=== PATIENT | male | born 1965 | race Caucasian/White ===

== ENCOUNTER → 2017-06-03 | Outpatient (CLI) | payer BC, OTHER ==
--- NOTE | 2017-06-03 21:33 | MR ---
EXAMINATION TYPE: MR knee LT wo con DATE OF EXAM: 06/03/2017 COMPARISON: Outside left knee x-ray May 15, 2017 HISTORY: Left knee pain with Locking and Swelling per patient. TECHNIQUE: Multiplanar, multisequence images of the knee is performed without IV contrast. FINDINGS: MEDIAL MENISCUS: There is medial extrusion of medial meniscus on coronal images. Anterior horn is dis placed anteriorly on sagittal images with globular increased signal. There is complex linear signal p osterior horn of medial meniscus, which appears to approach the superior meniscal surface sagittal im age 25 with truncated appearance. LATERAL MENISCUS: There is vertical increased signal central body lateral meniscus seen best sagittal image 8 extending to superior and inferior articular surfaces. There is parameniscal cyst formation posteriorly noted at this level. CRUCIATE LIGAMENTS: The anterior and posterior cruciate ligaments are intact and unremarkable. COLLATERAL LIGAMENTS: The medial collateral ligament and lateral collateral ligament complex are inta ct. Mild fluid signal surrounds medial collateral ligament which has abnormal medial bowing EXTENSOR MECHANISM: Visualized quadriceps and patellar tendons are intact. Patellar tendon is thicken ed. EFFUSION: There is small significant suprapatellar joint effusion. POPLITEAL CYST: There is large multiseptated popliteal/ridley cyst measuring nearly 11 cm long axis sa gittal image 22. TRICOMPARTMENT SPACES: There is advanced joint space loss medial tibiofemoral compartment with modera te to advanced medial and anterior spurring. There is moderate to advanced joint space loss and moder ate spurring patellofemoral compartment. There is mild spurring and joint space loss lateral tibiofem oral compartment. CARTILAGE: There is some fissuring and increased signal posterior patellar pole axial image 16 consis tent with chondromalacia patella. No full-thickness cartilaginous loss is seen at this level. There i s however full-thickness cartilaginous loss medial tibiofemoral compartment. BONE MARROW SIGNAL: There is heterogeneous diminished T1 and increased T2 signal medial tibial femora l compartment consistent bone marrow edema at site of full thickness cartilaginous loss. OTHER: There are some heterogeneous increased fluid signal in the deep infrapatellar fat pad. IMPRESSION: 1. Tricompartment degenerative changes which are advanced in appearance medial tibiofemoral compartme nt as there is full-thickness cartilaginous loss and reactive osseous edema present. 2. Full-thickness vertical tear central body of lateral meniscus. 3. Complex tear posterior horn of medial meniscus. 4. Intrasubstance tear anterior horn of medial meniscus. 5. Large multiseptated popliteal/Ridley cyst. 6. Mild to moderate MCL sprain.
== END | disposition home or self-care (01) ==
LOC: RADMRIMAIN 18:54
PROVIDERS: ATTEND Orthopaedic Surgery
DX: S83.282A Other tear of lateral meniscus, current injury, left knee, initial encounter (principal); S83.232A Complex tear of medial meniscus, current injury, left knee, initial encounter; S83.242A Other tear of medial meniscus, current injury, left knee, initial encounter; S83.412A Sprain of medial collateral ligament of left knee, initial encounter; M71.22 Synovial cyst of popliteal space [Baker], left knee; M94.8X6 Other specified disorders of cartilage, lower leg

== ENCOUNTER → 2017-08-06 | Outpatient (CLI) | payer BC, OTHER ==
[2017-08-06 14:34] LABS: Basophils # (A) 0.1 k/uL (0-0.2); Basophils % (A) 1 %; Eosinophils # (A) 0.2 k/uL (0-0.7); Eosinophils % (A) 2 %; HCT 44.7 % (39.0-53.0); Lymphocytes # (A) 1.8 k/uL (1.0-4.8); Lymphocytes % (A) 25 %; MCHC 33.6 g/dL (31.0-37.0); MCV 89.3 fL (80.0-100.0); Mean Platelet Volume 6.6; Monocytes # (A) 0.4 k/uL (0-1.0); Monocytes % (A) 6 %; Neutrophils # (A) 4.7 k/uL (1.3-7.7); Neutrophils % (A) 64 %; Platelet Count 246 k/uL (150-450); WBC 7.4 k/uL (3.8-10.6)
[2017-08-06 14:44] LABS: Potassium 3.9 mmol/L (3.5-5.1)
== END | disposition home or self-care (01) ==
LOC: LABPAT 13:50
PROVIDERS: ATTEND Orthopaedic Surgery
DX: Z01.812 Encounter for preprocedural laboratory examination (principal); M23.92 Unspecified internal derangement of left knee; Z01.818 Encounter for other preprocedural examination
CPT/HCPCS: 36415; 80051; 85025; 93005

== ENCOUNTER 2017-08-08 06:19 | Day surgery (SDC) | payer BC, OTHER ==
[2017-08-06 08:59] VITALS: BMI 33.6
--- NOTE | 2017-08-07 20:43 | HP ---
HISTORY AND PHYSICAL Chris Christine is a 52-year-old patient seen with progressive left knee pain. We discussed options regarding treatment. He elected to proceed with left knee arthroscopy. Consent regarding the procedure was obtained. PAST MEDICAL HISTORY: Noncontributory. PAST SURGICAL HISTORY: Noncontributory. DAILY MEDICATIONS: None. ALLERGIES: None reported. SOCIAL HISTORY: Patient denies tobacco use. PHYSICAL EVALUATION: Left knee range of motion is -2/3 to 120 degrees. There is a mild effusion present. There is tenderness along the medial and lateral joint lines. There is a positive medial Jane's. Ligaments are stable. There is crepitus along the medial patellofemoral compartments with range of motion. Hip rotation without pain. Distal neurovascular exam is intact. RADIOGRAPHS: Radiographs of the left knee reveal osteoarthritic changes. An MRI of the left knee revealed medial and lateral meniscal tears as well as osteoarthritis. IMPRESSION: 1. Internal derangement of the left knee with medial and lateral meniscal tears. 2. Left knee osteoarthritis. PLAN: Left knee arthroscopy with partial meniscectomy and debridement. MMODL / IJN: [id number] /
[~2017-08-08 06:19] MED LIST: HYDROmorphone 0.5 MG/0.5 ML SYRINGE IVP PRN; LACTATED RINGERS 1,000 ML IV SCH; ONDANSETRON 4 MG/2 ML VIAL IVP PRN; ceFAZolin IN SWFI 2 GM/20 ML SYRINGE IVP ONE; fentaNYL (PF) 50 MCG/ML 2 ML AMP IV PRN
[2017-08-08] MEDS ORDERED: LIDOCAINE 1% 20 ML VIAL (10MG/ML) FOR IV START INTRADERMA ONE (07:00)
[2017-08-08] MEDS ORDERED: MIDAZOLAM 2 MG/2 ML VIAL ONE (07:25)
[2017-08-08] MEDS ORDERED: ePHEDrine SULFATE/0.9% NACL/PF 50 MG/5 ML SYRINGE IV ONE (07:25)
[2017-08-08] MEDS ORDERED: PROPOFOL 10 MG/ML 20 ML VIAL IV ONE (07:25)
[2017-08-08] MEDS ORDERED: LIDOCAINE 1% INJ 10MG/ML (20 ML MDV) ONE (07:25)
[2017-08-08] MEDS ORDERED: fentaNYL (PF) 50 MCG/ML 2 ML AMP ONE (07:25)
[2017-08-08] MEDS ORDERED: SUCCINYLCHOLINE CHLORIDE VIAL 200 MG/10 ML VIAL IV ONE (07:25)
[2017-08-08] MEDS ORDERED: BUPIVACAINE (PF) 0.5% 30 ML VIAL INTRAARTIC ONE (07:36)
[2017-08-08 08:30] VITALS: TEMP 96.8
[2017-08-08] MEDS ORDERED: KETOROLAC 30 MG/ML 1 ML VIAL IVP ONE (08:36)
--- NOTE | 2017-08-08 08:36 | P.OP ---
Date of Procedure: 08/08/17 Preoperative Diagnosis: Internal derangement left knee Postoperative Diagnosis: 1. Tear medial and lateral meniscus left knee 2. Grade 4 chondromalacia medial femoral condyle left knee 3. Grade 3 chondromalacia lateral femoral condyle left knee 4. Grade 3/4 chondromalacia patellofemoral joint left knee 5. Reactive synovitis medial, lateral and suprapatellar compartments left knee 6. Partial ACL tear left knee 7. Multiple loose bodies left knee Procedure(s) Performed: 1. Arthroscopic partial medial and lateral meniscectomy left knee 2. Arthroscopic chondroplasty medial femoral condyle left knee 3. Arthroscopic chondroplasty lateral femoral condyle left knee 4. Arthroscopic chondroplasty patellofemoral joint left knee 5. Arthroscopic partial synovectomy medial, lateral and suprapatellar compartments left knee 6. Arthroscopic debridement partial ACL tear left knee 7. Arthroscopic removal loose bodies left knee 3 Anesthesia: LEOBARDO, local Surgeon: Justus Boykin Estimated Blood Loss (ml): 8 Pathology: none sent Condition: stable Disposition: PACU Indications for Procedure: 52-year-old patient seen with progressive left knee pain. After having treatment options discussed, he elected to proceed with arthroscopy. Operative Findings: see description of procedure Description of Procedure: Patient was taken to the operative suite. Patient underwent a general anesthetic by the department of anesthesia. Patient was given preoperative antibiotics. The left lower extremity was placed in a well-padded arthroscopic leg crandall. The left leg was prepped and draped in the normal sterile orthopedic fashion. A lateral parapatellar and suprapatellar incision was made. Trochars were inserted. Arthroscopy was initiated. Suprapatellar pouch revealed diffuse thick reactive synovitis. The patellofemoral joint appeared to articulate congruently. There was grade 3 and 4 chondromalacia of both the patella and femoral sulcus with diffuse osteochondral tears present. The scope was guided into the medial gutter. No loose bodies or plica were identified. The scope was then guided into the medial compartment. A medial parapatellar incision was made. Trocar inserted followed by probe. There was a complex tear involving the midbody and posterior horn of the medial meniscus. There was a small radial tear anterior horn medial meniscus. There were grade 4 chondral moist changes of medial femoral condyle with some osteochondral tears present. There were grade 4 chondral malacia changes of medial tibial plateau. There was exposed bone both on the femoral condyle and tibial plateau side. There was thick reactive synovitis anteriorly. I performed a partial medial meniscectomy down to stable tissue. I performed a chondroplasty of the medial femoral condyle down to stable tissue. I performed a partial synovectomy. The residual meniscus was found to be stable. Scope and probe were then guided into the intercondylar notch. There appeared to be a partial tear of the anterior crucial ligament with the residual stump and fibers sitting in the notch. It did impinge with extension. I debrided the partial tear out. There were some residual fibers of the ACL left. Maybe 50% that offered some stability. The PCL was intact. The scope and probe were then guided into lateral compartment. There were radial tears involving the posterior horn and midbody lateral meniscus. There was a central weightbearing surface lateral femoral condyle area of grade 3 chondromalacia with osteochondral tears present. There was some reactive synovitis present. I performed a partial lateral meniscectomy down to stable tissue. I performed a chondroplasty of the lateral femoral condyle down to stable tissue. I performed a partial synovectomy. The residual meniscus and osteochondral surfaces were probed and found to be stable. The scope was in guided back into the suprapatellar compartment. I introduced a motorized shaver into the super patellar compartment. I debrided some piecemeal fragments of meniscus I encountered. I performed a chondroplasty of both the patella and femoral sulcus getting down to stable osteochondral tissue. I debrided some piecemeal fragments of meniscus I encountered. I performed a partial synovectomy. I took one more look on the entire knee, no residual debris. Instruments were now removed from the joint. The joint was infiltrated with .25% Marcaine. Steri-Strips were applied to the portal sites. Sterile dressings were applied. The patient was placed into a SHANDRA hose. No tourniquet was utilized. The patient was awakened, transferred to a bed and taken to recovery stable satisfactory condition.
[2017-08-08 09:09] VITALS: RESP 18
[2017-08-08 09:47] VITALS: BP 109/69; PULSE 72
== END 2017-08-08 09:58 | disposition home or self-care (01) ==
LOC: OR 06:19
PROVIDERS: ATTEND Orthopaedic Surgery
DX: S83.242A Other tear of medial meniscus, current injury, left knee, initial encounter (principal); S83.282A Other tear of lateral meniscus, current injury, left knee, initial encounter; S83.512A Sprain of anterior cruciate ligament of left knee, initial encounter; X58.XXXA Exposure to other specified factors, initial encounter; M22.42 Chondromalacia patellae, left knee; M65.862 Other synovitis and tenosynovitis, left lower leg; M23.42 Loose body in knee, left knee; E66.9 Obesity, unspecified; Z68.33 Body mass index [BMI] 33.0-33.9, adult

== ENCOUNTER → 2017-12-30 | Outpatient (CLI) | payer BC, OTHER ==
--- NOTE | 2017-12-30 13:17 | MR ---
EXAMINATION TYPE: MR knee RT wo con DATE OF EXAM: 12/30/2017 COMPARISON: Plain films advanced orthopedics dated 12/03/2017 HISTORY: Pain in right knee TECHNIQUE: Multiplanar, multisequence imaging of the right knee is performed without IV contrast. FINDINGS: MEDIAL MENISCUS: Anterior horn medial meniscus appears intact. There is oblique signal extending to t he inferior articular surface within the substance of the posterior horn medial meniscus compatible w ith a long oblique tear. LATERAL MENISCUS: Anterior and posterior horns are intact without tear. CRUCIATE LIGAMENTS: The anterior and posterior cruciate ligaments are intact and unremarkable. COLLATERAL LIGAMENTS: The medial collateral ligament and lateral collateral ligament complex are inta ct and unremarkable. EXTENSOR MECHANISM: Visualized quadriceps and patellar tendons are intact. EFFUSION: No significant suprapatellar joint effusion. POPLITEAL CYST: No popliteal/hess cyst. There does appear to be a large meniscal cyst posterior and lateral to the oblique tear of the posterior horn medial meniscus. This is estimated to measure 2.5 x 0.9 x 2.2 cm in size. TRICOMPARTMENT SPACES: There is narrowing of the medial lateral compartment joint spaces. The patello femoral joint space appears preserved. CARTILAGE: There is thinning of the articular cartilage diffusely likely on the basis of osteoarthrit ic degenerative change. This is the least in the patellofemoral compartment and diffuse within the me dial lateral compartments. BONE MARROW SIGNAL: No focal abnormal marrow signal is appreciated. OTHER: No additional significant abnormality is appreciated. IMPRESSION: 1. Oblique tear posterior horn medial meniscus with adjacent meniscal cyst. 2. Osteoarthritic degenerative change
== END | disposition home or self-care (01) ==
LOC: RADMRIMAIN 06:53
PROVIDERS: ATTEND Orthopaedic Surgery
DX: S83.241A Other tear of medial meniscus, current injury, right knee, initial encounter (principal); M17.11 Unilateral primary osteoarthritis, right knee

== ENCOUNTER → 2018-01-29 | Outpatient (CLI) | payer BC, OTHER ==
[2018-01-29 10:30] LABS: Basophils % (A) 1 %; Eosinophils # (A) 0.1 k/uL (0-0.7); Eosinophils % (A) 2 %; HCT 45.3 % (39.0-53.0); HGB 14.9 gm/dL (13.0-17.5); Lymphocytes # (A) 1.8 k/uL (1.0-4.8); Lymphocytes % (A) 29 %; MCH 29.8 pg (25.0-35.0); MCV 90.4 fL (80.0-100.0); Mean Platelet Volume 6.6; Monocytes # (A) 0.4 k/uL (0-1.0); Monocytes % (A) 6 %; Neutrophils # (A) 3.8 k/uL (1.3-7.7); Neutrophils % (A) 59 %; Platelet Count 254 k/uL (150-450); RBC 5.01 m/uL (4.30-5.90); RDW 12.4 % (11.5-15.5); WBC 6.4 k/uL (3.8-10.6)
[2018-01-29 10:31] LABS: Partial Thromboplastin Time 26.1 sec (22.0-30.0); Prothrombin Time 9.9 sec (9.0-12.0)
[2018-01-29 10:33] LABS: Potassium 4.5 mmol/L (3.5-5.1)
== END ==
LOC: LABPAT 08:27
PROVIDERS: ATTEND Orthopaedic Surgery
DX: Z01.812 Encounter for preprocedural laboratory examination (principal)
CPT/HCPCS: 36415; 80051; 85025; 85610; 85730; 87070

== ENCOUNTER → 2018-02-05 | Outpatient (CLI) | payer BC, OTHER ==
--- NOTE | 2018-02-05 12:42 | ECHOS ---
STRESS ECHOCARDIOGRAM INDICATIONS: Pre-operative. MEDICATIONS: None. BASELINE HEART RATE: 86 BASELINE BLOOD PRESSURE: 113/72 MAXIMUM HEART RATE: 150 MAXIMUM BLOOD PRESSURE: 188/71 85% MPHR: 141 100% MPHR: 166 METS: 8.1 MAXIMUM STAGE REACHED: 3 TOTAL EXERCISE TIME: 6:45 CLINICAL INFORMATION: Baseline rhythm is sinus mechanism, rate 86, intraventricular conduction delay. Baseline blood pressure 113/72 mmHg. Patient exercised on Kieran protocol for 6 minute 45 seconds reaching a peak at 150 beats per minute which is equal to 90% maximum predicted heart rate. Peak blood pressure 188/71 mmHg. The test was terminated due to fatigue. There was no chest pain. Electrocardiograph monitoring revealed no evidence of diagnostic ischemic ST deviation. FINDINGS: Baseline echocardiogram revealed normal wall thickening motion. At peak exercise, there was normal wall motion augmentation with no hypokinesis or dyskinesis. CONCLUSION: 1. Average exercise tolerance with nondiagnostic electrocardiograph stress testing secondary to baseline EKG abnormality. 2. Nuclear images will be reported separately. MMODL / IJN: [id number] /
== END | disposition home or self-care (01) ==
LOC: RADNMMAIN 09:00
PROVIDERS: ATTEND Family Medicine
DX: Z01.818 Encounter for other preprocedural examination (principal)
CPT/HCPCS: 93351

== ENCOUNTER 2018-02-10 08:04 | Day surgery (SDC) | payer BC, OTHER ==
[2018-02-04 15:26] VITALS: BMI 33.0
--- NOTE | 2018-02-09 19:16 | HP ---
HISTORY AND PHYSICAL REASON FOR ADMISSION: Surgery 02/10/2018 Chris Christine is a 52-year-old patient seen with symptomatic left knee osteoarthritis. Treatment options discussed. He elected to proceed with left total knee arthroplasty. Consent was obtained. Medical clearance prior Dr. Wilburn. PAST MEDICAL HISTORY: Noncontributory. PAST SURGICAL HISTORY: Noncontributory. DAILY MEDICATIONS: None. ALLERGIES: None reported. SOCIAL HISTORY: Patient denies tobacco use. PHYSICAL EXAMINATION: Evaluation of the left knee is range of motion is negative to 125 degrees. He is tender on the medial joint line. Crepitus medial patellofemoral compartments with range of motion. Ligaments stable. Hip rotation without pain. Distal neurovascular exam is intact. RADIOGRAPHS: Of his left knee revealed severe medial and moderate patellofemoral compartment osteoarthritis. IMPRESSION: Left knee osteoarthritis. PLAN: Left total knee arthroplasty. Surgery scheduled for 02/10/2018. MMODL / IJN: [id number] /
[~2018-02-10 08:04] MED LIST changes: +ACETAMINOPHEN TAB 500 MG TAB PO ONE; +DEXAMETHASONE SOD PHOSPHATE 10 MG/ML 1 ML VIAL IV ONE; -HYDROmorphone 0.5 MG/0.5 ML SYRINGE IVP PRN; +LIDOCAINE 1% 20 ML VIAL (10MG/ML) FOR IV START INTRADERMA PRN; +MELOXICAM 7.5 MG TAB PO ONE; +MIDAZOLAM 2 MG/2 ML VIAL IV PRN; +ONDANSETRON 4 MG/2 ML VIAL IVP ONE; -ONDANSETRON 4 MG/2 ML VIAL IVP PRN; +TRANEXAMIC ACID 1,000 MG in SODIUM CHLORIDE 0.9% 50 ML IVPB ONE
[2018-02-10] MEDS ORDERED: LIDOCAINE 1% 20 ML VIAL (10MG/ML) FOR IV START INTRADERMA ONE (08:52)
[2018-02-10] MEDS ORDERED: DEXAMETHASONE SOD PHOSPHATE 4 MG/ML 1 ML VIAL IVP ONE (08:58)
[2018-02-10] MEDS ORDERED: MIDAZOLAM 2 MG/2 ML VIAL IVP ONE (09:15)
[2018-02-10] MEDS ORDERED: SODIUM CHLORIDE 0.9% 100 ML BAG ONE (09:44)
[2018-02-10] MEDS ORDERED: DEXAMETHASONE SOD PHOS (MDV) 100 MG/10 ML VIAL ONE (09:44)
[2018-02-10] MEDS ORDERED: ROCURONIUM BROMIDE 10 MG/ML 10 ML VIAL IV ONE (09:44)
[2018-02-10] MEDS ORDERED: fentaNYL (PF) 50 MCG/ML 2 ML AMP ONE (09:44)
[2018-02-10] MEDS ORDERED: GLYCOPYRROLATE 0.2 MG/ML 2 ML VIAL ONE (09:44)
[2018-02-10] MEDS ORDERED: NEOSTIGMINE 1 MG/ML 10 ML VIAL ONE (09:44)
[2018-02-10] MEDS ORDERED: TRANEXAMIC ACID 1,000 MG/10 ML VIAL ONE (09:44)
[2018-02-10] MEDS ORDERED: HYDROmorphone (PF) 1 MG/ML ONE (09:44)
[2018-02-10] MEDS ORDERED: SUCCINYLCHOLINE CHLORIDE VIAL 200 MG/10 ML VIAL IV ONE (09:44)
[2018-02-10] MEDS ORDERED: LIDOCAINE 1% INJ 10MG/ML (20 ML MDV) ONE (09:44)
[2018-02-10] MEDS ORDERED: PROPOFOL 10 MG/ML 20 ML VIAL IV ONE (09:44)
[2018-02-10] MEDS ORDERED: LACTATED RINGERS 1,000 ML IV ONE ×2 (09:44→11:15)
[2018-02-10] MEDS ORDERED: MIDAZOLAM 2 MG/2 ML VIAL ONE (09:44)
[2018-02-10] MEDS ORDERED: ROPIVACAINE 246.25 MG, EPINEPHrine 0.5 MG, KETOROLAC 30 MG, cloNIDine HCL/PF 80 MCG, WA... MISCELLANE ONE ×5 (10:07)
[2018-02-10] MEDS ORDERED: ceFAZolin 3,000 MG in SODIUM CHLORIDE 0.9% IRRIGATIO 3,000 ML IRRIGATION ONE (10:18)
--- NOTE | 2018-02-10 10:21 | P.ONQ ---
Anesthesiology Proc Note - PNB - Peripheral Nerve Block Performed Left Adductor Canal Infusion Time Out Performed: Yes Procedure Start Time: :15 Procedure Stop Time: : Indication: Acute Post-Operative Pain, Requested by physician Sedation Type: Sedate with meaningful contact maintained Preparation: Sterile Dressing Position: Supine Catheter: Indwelling Needle Types: On-Q Needle Size: 100mm (4") Needle Gauge: 21 Technique: Ultrasound Injectate: 0.5% Ropivacaine (see comment for volume) (ropi .5% 20cc) Blood Aspirated: No Pain Paresthesia on Injection Noted: No Resistance on Injection: Normal Events: Uneventful and Well Tolerated
[2018-02-10] MEDS ORDERED: ROPIVACAINE 1,100 MG, SODIUM CHLORIDE 0.9% 500 ML 330 ML MISCELLANE PRN ×2 (10:22)
--- NOTE | 2018-02-10 11:52 | P.OP ---
Date of Procedure: 02/10/18 Preoperative Diagnosis: Left knee osteoarthritis Postoperative Diagnosis: Left knee osteoarthritis Procedure(s) Performed: Left total knee arthroplasty Implants: 1. Depuy attune size 9 left cruciate retaining cemented femur 2. Depuy attune size 9 cemented fixed bearing tibial baseplate 3. Depuy size 9 fixed-bearing 10 mm cruciate retaining by a thin tibial insert 4. Depuy attune 41 mm all polyethylene cemented patella Anesthesia: GETA, regional, local Surgeon: Justus Boykin Cleaning And Maintenance Worker #1: Renan Gan Estimated Blood Loss (ml): 50 Pathology: other (Bone) Condition: stable Disposition: PACU Indications for Procedure: 52-year-old patient seen with symptomatic left knee osteoarthritis. After treatment options were discussed, he elected to proceed with total knee arthroplasty. Operative Findings: See description of procedure Description of Procedure: Patient was taken to the operative suite after having an adductor canal catheter placed by the department of anesthesia. Patient underwent a general anesthetic by the department of anesthesia. Patient was given preoperative IV intake antibiotics and TXA. A well-padded tourniquet was placed about the left lower extremity. The lower extremity was then prepped and draped in the normal sterile orthopedic fashion. The extremity was elevated, a tourniquet was insufflated to 300. A standard anterior incision was made sharply through skin. Dissection was taken down through the subcutaneous soft tissues down to the extensor mechanism. A medial arthrotomy was performed, patella was everted and knee was flexed. There was advanced osteoarthritis noted. I introduced my distal intramedullary femoral drill. I then introduced the distal femoral cutting jig. Johnnie RICO secured the cutting jig with 2 pins. I held retractors in position while Johnnie RICO performed the distal femoral resection through the guide area we now removed her distal femoral cutting guide. We now placed our 4-in-1 femoral cutting block and positioned and it was secured with 2 pins by Johnnie RICO while I held the block in position. The distal femoral finishing was now completed. A proximal tibial cutting guide was positioned. I held the guide in the appropriate position with both hands well Johnnie RICO inserted stabilizing pins into the guide. Proximal tibial cut was made. We now placed a trial femoral component into position, along with an appropriate size tibial tray and insert. We now took the knee through range of motion and had full extension good flexion and good overall soft tissue balance noted. The patella was everted and stabilized with 2 towel clips held by Johnnie RICO while I performed a flush with patellar quad tendon utilizing a fresh sawblade. We templated the patella, appropriate drill holes were made. An appropriate trial patella was positioned, knee was taken through full range of motion with the patella tracking very nicely. The trial patella was removed. Drill holes were made through the femoral component. All trial components were removed after marking off the appropriate rotation of the tibia. Retractors were now positioned along the proximal tibia. An appropriate keel punch was made with the appropriate size tibial guide by myself on Johnnie RICO assisted by holding retractors. At this point appropriate size implants were chosen and opened. The joint was irrigated copiously with pulse lavage mechanical irrigation. The posterior capsule was infiltrated with local analgesic. The wound was irrigated with pulse lavage mechanical irrigation. We mixed antibiotic methylmethacrylate. We placed the knee into flexion. We placed multiple retractors assisted by Johnnie RICO to expose the proximal tibia. Once the methyl methacrylate was ready, the tibial component was cemented into place removing any excess methylmethacrylate form by both myself and Johnnie RICO. The femoral component was cemented into place removing the removing any excess methylmethacrylate performed by both myself and Johnnie RICO. We then inserted the appropriate size polyethylene tibial insert. We made sure that it was locked into position. We took the knee into full extension, and then back in a flexion making sure we had removed any excess methylmethacrylate. The patellar component was then cemented down and secured with clamp. Excess methylmethacrylate removed. We kept the knee in full extension, patellar clamp in position until methylmethacrylate had hardened. Once it had hardened the patellar clamp was removed. The knee was taken through full range of motion. The patella tracked nicely. There was good soft tissue balancing. The tourniquet was now released. Additional hemostasis was achieved via electrocautery. A second gram of TXA was given. The wound again was irrigated with pulse lavage mechanical irrigation. The superficial soft tissues were infiltrated local analgesic. The extensor mechanism was repaired with Vicryl. We checked the repair with range of motion and it was stable. The subcutaneous soft tissues were repaired with Vicryl in layers. The skin was approximated with pernio/Dermabond. Sterile dressings were applied followed by loose web roll and Jonn bandage. The patient was transferred to a bed, and taken to recovery in stable and satisfactory condition. Johnnie RICO assisted with this complex procedure.
[2018-02-10] MEDS ORDERED: ONDANSETRON 4 MG/2 ML VIAL IVP PRN (11:58)
[2018-02-10] MEDS ORDERED: HYDROcodone/APAP 7.5-325MG 1 EACH TAB PO PRN (11:58)
[2018-02-10] MEDS ORDERED: NALOXONE 0.4 MG/ML 1 ML VIAL IV PRN (11:58)
[2018-02-10] MEDS ORDERED: HYDROmorphone 1 MG/ML 1 ML SYRINGE IVP PRN ×3 (11:58)
[2018-02-10] MEDS ORDERED: traMADol 50 MG TAB PO PRN (11:58)
[2018-02-10] MEDS ORDERED: LACTATED RINGERS 1,000 ML IV SCH (12:00)
[2018-02-10 12:10] VITALS: TEMP 97.4
[2018-02-10 12:22] VITALS: RESP 16
--- NOTE | 2018-02-10 12:47 | XR ---
Limited left knee HISTORY: Status post left knee arthroplasty 2 views of the left knee Patient is status post left knee arthroplasty. There is anatomic alignment. Lucency present in the so ft tissues is compatible with postop state. IMPRESSION: Orthopedic follow-up.
[2018-02-10 15:15] VITALS: BP 106/67; PULSE 67
[2018-02-10] MEDS ORDERED: ceFAZolin IN SWFI 2 GM/20 ML SYRINGE IVP ONE (16:00)
--- NOTE | 2018-02-11 08:02 | P.PN ---
Progress Note - Text Progress Note Date: 02/11/18 The patient is status post[ 1] adductor canal catheter placement. The catheter was placed for postoperative pain control, status post total [left Knee] arthroplasty. Ropivacaine 0.2% is infusing at[ 8 ] mLs per hour. The patient has no complaints of[ ] lower extremity numbness or weakness. Patient's VAS score is[ 4]-10. Assessment: Patient's adductor canal catheter is in place and working appropriately. Plan: continue infusion and adjust it as needed.
== END 2018-02-10 16:32 | disposition home health service (06) ==
LOC: OR 08:04
PROVIDERS: ATTEND Orthopaedic Surgery
DX: M17.12 Unilateral primary osteoarthritis, left knee (principal); E78.5 Hyperlipidemia, unspecified; E66.9 Obesity, unspecified; Z68.38 Body mass index [BMI] 38.0-38.9, adult; G47.33 Obstructive sleep apnea (adult) (pediatric)
CPT/HCPCS: 97161; 88300; 73560; 27447; 64448; C1776; C1713; C1772; J2250; J0171; J0330; J1100 ×2; J2710; J0690 ×2; J2001; J3010; J1885; J1170; J2795; J2704; J0735

== ENCOUNTER 2018-04-03 15:29 | Inpatient (IN) | payer BC, OTHER ==
--- NOTE | 2018-04-02 18:08 | HP ---
HISTORY AND PHYSICAL DATE OF SURGERY: 04/03/2018 Sukhi Christine is a 52-year-old patient seen with a left knee patellar periprosthetic fracture after having undergone a previous left total knee arthroplasty on 02/10/2018. He had a traumatic injury, fracturing the patella, recommended open reduction internal fixation versus excision and repair of the quadriceps tendon. The procedure, risks, complications, benefits and recovery regarding the proposed procedure were reviewed with him. He understood the plan and agreed to the procedure. Consent was obtained. PAST MEDICAL HISTORY: Noncontributory. PAST SURGICAL HISTORY: Left total knee arthroplasty. DAILY MEDICATIONS: None. ALLERGIES: NONE. SOCIAL HISTORY: He denies tobacco use. PHYSICAL EVALUATION OF LEFT KNEE: His incision is well healed, but there is a small wound at the distal end of the incision. There is an effusion present. He is unable to extend the knee. There is a palpable tenderness along the patellar area. His ligaments are stable. Distal neurovascular exam is intact. RADIOGRAPHS: Radiographs of the left knee revealed a patellar fracture as well as a stable-appearing total knee arthroplasty. IMPRESSION: 1. Left knee patellar fracture. 2. Left total knee arthroplasty. PLAN: Open reduction internal fixation, left knee patellar fracture. MMODL / IJN: [id number] /
[~2018-04-03 15:29] MED LIST changes: -ACETAMINOPHEN TAB 500 MG TAB PO ONE; -DEXAMETHASONE SOD PHOSPHATE 10 MG/ML 1 ML VIAL IV ONE; -LACTATED RINGERS 1,000 ML IV SCH; -LIDOCAINE 1% 20 ML VIAL (10MG/ML) FOR IV START INTRADERMA PRN; -MELOXICAM 7.5 MG TAB PO ONE; -MIDAZOLAM 2 MG/2 ML VIAL IV PRN; -ONDANSETRON 4 MG/2 ML VIAL IVP ONE; -TRANEXAMIC ACID 1,000 MG in SODIUM CHLORIDE 0.9% 50 ML IVPB ONE; -fentaNYL (PF) 50 MCG/ML 2 ML AMP IV PRN
[2018-04-03] MEDS ORDERED: LACTATED RINGERS 1,000 ML IV ONE ×2 (16:11→20:05)
[2018-04-03] MEDS ORDERED: LIDOCAINE 1% 20 ML VIAL (10MG/ML) FOR IV START INTRADERMA ONE (16:12)
[2018-04-03] MEDS ORDERED: ONDANSETRON 4 MG/2 ML VIAL IVP ONE (16:22)
[2018-04-03] MEDS ORDERED: LIDOCAINE 1% 20 ML VIAL (10MG/ML) FOR IV START INTRADERMA PRN (16:22)
[2018-04-03] MEDS ORDERED: DEXAMETHASONE SOD PHOSPHATE 10 MG/ML 1 ML VIAL IV ONE (16:22)
[2018-04-03] MEDS ORDERED: HYDROmorphone 0.5 MG/0.5 ML SYRINGE IVP PRN ×3 (16:22→20:18)
[2018-04-03] MEDS ORDERED: SCOPOLAMINE 1.5MG/72HR PATCH TRANSDERM ONE (16:22)
[2018-04-03] MEDS ORDERED: LACTATED RINGERS 1,000 ML IV SCH (16:22)
[2018-04-03] MEDS ORDERED: MIDAZOLAM (PF) 2 MG/2 ML VIAL IV PRN (16:22)
[2018-04-03] MEDS ORDERED: MIDAZOLAM 2 MG/2 ML VIAL ONE (18:30)
[2018-04-03] MEDS ORDERED: HYDROmorphone (PF) 1 MG/ML ONE (18:30)
[2018-04-03] MEDS ORDERED: ROPIVACAINE 5 MG/ML 30 ML VIAL ONE (18:30)
[2018-04-03] MEDS ORDERED: LIDOCAINE 1% INJ 10MG/ML (20 ML MDV) ONE (18:30)
[2018-04-03] MEDS ORDERED: SUCCINYLCHOLINE CHLORIDE 100 MG/5 ML SYR IV ONE (18:30)
[2018-04-03] MEDS ORDERED: PROPOFOL 10 MG/ML 20 ML VIAL IV ONE (18:30)
[2018-04-03] MEDS ORDERED: fentaNYL (PF) 50 MCG/ML 2 ML AMP ONE (18:30)
[2018-04-03] MEDS ORDERED: ceFAZolin 1,000 MG in SODIUM CHLORIDE 0.9% 1,000 ML IRRIGATION ONE (18:58)
--- NOTE | 2018-04-03 20:17 | P.OP ---
Date of Procedure: 04/03/18 Preoperative Diagnosis: Left knee patella fracture Postoperative Diagnosis: Left knee patella fracture Procedure(s) Performed: Open reduction and internal fixation left knee patella fracture Implants: 20.65 K wires and an 18-gauge cerclage wire Anesthesia: LEOBARDO Surgeon: Justus Boykin Polyethylene Bag Machine Operator #1: Renan Gan Estimated Blood Loss (ml): 20 Pathology: none sent Condition: stable Disposition: PACU Indications for Procedure: 52-year-old patient who is seen after a traumatic injury and noted to have a periprosthetic left knee patella fracture. I recommended open reduction and internal fixation. The procedure risks complications and benefits and recovery were discussed. He was agreeable, consent was obtained. Operative Findings: See description of procedure Description of Procedure: The patient was taken to the operative suite. The patient underwent a general anesthetic by the department of anesthesia. A well-padded tourniquet was placed along the proximal left thigh. The left lower extremity was prepped and draped in the normal sterile orthopedic fashion. The extremity was elevated and tourniquet insufflated to 300. An incision was now made over the previous cicatrix sharply through skin. We dissected down and noted immediate hemarthrosis and a defect in the extensor mechanism. We identified the fracture. We irrigated the wound out copiously with antibiotic saline solution. We removed all hematoma. We noted the patellar component to be well fixed to the distal end of the patella. There was about 70% of the patellar component will cemented and fixed to the inferior pole the patella. The superior pole patella was fractured and there was a 2 cm x 3 cm fragment. We now approximated the bony fragments together and 2-0.65 K wires were introduced perpendicular to the fracture. I then used an 18 gauge cerclage wire any modified tension band technique to tension down the fracture and secure. The K wires were bent and clipped. The cerclage wire was again tightened down but clipped and buried in soft tissue. We checked the repair with flexion we had a good solid repair. The wound was irrigated with antibiotic saline solution. We repaired some of the retinacular defect medially with #5 Ethibond in multiple simple interrupted suture fashion. We checked the repair with flexion was stable. We now again irrigated the wound out with antibiotic irrigant solution. We now approximate the subcu soft tissues with 2-0 Vicryl and the skin was repaired with skin dell. Sterile dressings were applied. The tourniquet was released with immediate capillary refill of the entire leg noted. We applied sterile web roll and Jonn bandage. The patient was placed into a knee immobilizer. Patient was awakened and transferred to recovery stable condition. Johnnie RICO assisted with the procedure.
[2018-04-03] MEDS ORDERED: ONDANSETRON 4 MG/2 ML VIAL IVP PRN (20:18)
[2018-04-03] MEDS ORDERED: HYDROcodone/APAP 5-325MG 1 EACH TAB PO PRN ×2 (20:18)
[2018-04-03] MEDS ORDERED: NALOXONE 0.4 MG/ML 1 ML VIAL IV PRN (20:18)
[2018-04-03] MEDS ORDERED: HYDROmorphone 1 MG/ML 1 ML SYRINGE IVP PRN (20:18)
[2018-04-03] MEDS ORDERED: ROPIVACAINE 5 MG/ML 30 ML VIAL MISCELLANE ONE (20:35)
--- NOTE | 2018-04-03 21:34 | XR ---
PROCEDURE: XR knee limited LT - 2V DATE AND TIME: 04/03/2018 8:37 PM CLINICAL INDICATION: PHH; Evaluation for Postop abnormality and alignment TECHNIQUE: Department protocol COMPARISON: 02/10/2018 FINDINGS: The TKR is intact. Cerclage wiring over the patella is intact. Post procedural changes noted. No unexpected findings. IMPRESSION: Postoperative left patella.
[2018-04-03 22:03] VITALS: BMI 33.6
[2018-04-03] MEDS: LACTATED RINGERS 1,000 ML IV SCH (22:16)
[2018-04-04] MEDS: ceFAZolin IN SWFI 2 GM/20 ML SYRINGE IVP SCH ×2 (02:55→10:33)
[2018-04-04] MEDS: LACTATED RINGERS 1,000 ML IV SCH (06:15)
[2018-04-04 07:46] VITALS: BP 131/75; PULSE 94; RESP 12; TEMP 98.1
[2018-04-04 07:55] LABS: Basophils % (A) 0 %; Eosinophils % (A) 0 %; HCT 39.2 % (39.0-53.0); HGB 12.9 gm/dL (13.0-17.5); Lymphocytes # (A) 1.4 k/uL (1.0-4.8); Lymphocytes % (A) 10 %; MCH 29.6 pg (25.0-35.0); MCV 89.6 fL (80.0-100.0); Mean Platelet Volume 6.6; Monocytes # (A) 0.6 k/uL (0-1.0); Monocytes % (A) 5 %; Neutrophils % (A) 82 %; Platelet Count 340 k/uL (150-450); RBC 4.37 m/uL (4.30-5.90); RDW 12.9 % (11.5-15.5); WBC 13.4 k/uL (3.8-10.6)
--- NOTE | 2018-04-04 08:08 | P.ONQ ---
Anesthesiology Proc Note - PNB - Peripheral Nerve Block Performed Left Adductor Canal Single Time Out Performed: Yes Procedure Start Time: 20:33 Procedure Stop Time: 20:35 Indication: Acute Post-Operative Pain, Requested by physician Sedation Type: Sedate with meaningful contact maintained Preparation: Sterile Prep Position: Supine Needle Size: 100mm (4") Needle Gauge: 21 Technique: Ultrasound Injectate: 0.5% Ropivacaine (see comment for volume) (ropi .5% 20cc) Blood Aspirated: No Pain Paresthesia on Injection Noted: No Resistance on Injection: Normal Events: Uneventful and Well Tolerated
[2018-04-04] MEDS ORDERED: ENOXAPARIN 30 MG/0.3 ML SYRINGE SQ SCH (09:00)
--- NOTE | 2018-04-04 10:55 | P.PN ---
Subjective Progress Note Date: 04/04/18 Principal diagnosis: Status post open reduction internal fixation left knee patella fracture Patient evaluated today at bedside, he is resting comfortably. His pain is well -controlled. Denies any chest pain or shortness of breath. Objective - Vital Signs Vital signs: Vital Signs Temp 98.1 F 04/04/18 07:45 Pulse 94 04/04/18 07:45 Resp 12 04/04/18 07:45 BP 131/75 04/04/18 07:45 Pulse Ox 97 04/04/18 07:45 Intake & Output 04/03/18 04/04/18 04/04/18 18:59 06:59 18:59 Intake Total 1001 1100 180 Output Total 470 Balance 1001 630 180 Weight 115.666 kg Intake: IV 1001 100 Intake, IV Titration 1000 Amount Lactated Ringers 1,000 ml 1000 @ 100 mls/hr IV .Q10H CATHERINE Rx#:[id number] Oral 180 Output: Urine 450 Estimated Blood Loss 20 - Exam Left lower extremity: Dressing is in good condition and position. Minimal soft tissue swelling. Calf is soft, no tenderness with palpation. Distal neurovascular exam is intact - Labs CBC & Chem 7: 04/04/18 07:10 Labs: Abnormal Lab Results - Last 24 Hours (Table) 04/04/18 Range/Units 07:10 WBC 13.4 H (3.8-10.6) k/uL Hgb 12.9 L (13.0-17.5) gm/dL Neutrophils # 11.0 H (1.3-7.7) k/uL Assessment and Plan Plan: Assessment: 1. Postop day 1 status post ORIF left knee patella fracture Plan: Pain control, patient has anti-inflammatories and narcotic pain medication at home DVT prophylaxis, 81 mg aspirin twice a day for 2 weeks Wound care and weightbearing restrictions discussed Stable for discharge home today Time with Patient: Less than 30
--- NOTE | 2018-04-04 10:58 | P.DS ---
Providers Date of admission: 04/03/18 20:11 Expected date of discharge: 04/04/18 Attending physician: Justus Boykin [facility] Course: Date of admission: 04/03/2018 Date of discharge: 04/04/2018 Admission diagnosis: Status post open reduction internal fixation left knee patella fracture Discharge diagnosis: Same Attending physician: Dr. Boykin Surgical procedures: Status post open reduction internal fixation left knee patellar fracture Brief history: Patient is a 52-year-old male with a history of a previous left knee total arthroplasty who was evaluated in the outpatient setting after a left knee injury. He slipped and fell directly onto his knee. It was determined patient had a displaced left patella fracture. Patient was scheduled for surgery on 04/03/2018 Hospital course: Details of patient's surgery can be found in operative report. Patient tolerated the procedure well and was subsequently transported to orthopedic floor. Patient's orthopeidc and medical care was provided daily. Patient had daily laboratory tests performed for evaluation of overall blood counts. Patient had daily physical therapy to include strengthening range of motion as well as education with walker ambulation. Patient was treated with Lovenox for their postoperative DVT prophylaxis during their inpatient stay. Patient was noted to have a relatively uneventful postoperative course. Patient reported satisfactory pain control with oral pain medications by postoperative day 0. Patient showed satisfactory progress with physical therapy. Patient moved steadily through the program and had no difficulty meeting the goals by postoperative day 1. Given patient's otherwise satisfactory course and having met physical therapy goals, plan is to discharge patient home on postoperative day 1. Discharge condition/disposition: Patient will be discharged home in stable condition. Discharge medications: Instructions are given on resumption of patient's normal daily medications per primary care recommendation, in addition patient will be prescribed aspirin 81 mg. Discharge instructions: 1. Wound care and infection precautions, keep incision dry and covered while showering, no lotions, creams, moisturizers. No soaking, tubs, pools, hottubs. Do not scrub over the incision. 2. Toe-touch weightbearing, must utilize brace, utilize crutches/walker 3. Ice and elevate when necessary. Do not exceed 20 minutes per hour with ice pack. 4. Utilize compression sleeve until seen at first follow up appointment. 7. Pain meds and anticoagulants per prescription. 8. Pain medication has potential to cause constipation. Increase oral fluid and fiber intake. Contact primary care provider if you have not had a bowel movement within 48 hours after discharge 9. No anti-inflammatory medication until discussed at first post operative visit, this including Motrin, Aleve, Mobic, Diclofenac. 10. Follow up in office at 2 weeks postop with Johnnie Gan PA-C 11. Follow up with your primary care doctor 7-10 days after discharge. 12. Contact [facility] with any questions, . Procedures: Left knee open reduction internal fixation patellar fracture Patient Condition at Discharge: Good Plan - Discharge Summary Discharge Rx Participant: No New Discharge Prescriptions: New Aspirin [Adult Low Dose Aspirin EC] 81 mg PO BID #30 tablet.dr Yudelka Roca Multivitamins, Thera [Multivitamin (formulary)] 1 tab PO DAILY Ascorbic Acid [Vitamin C] 500 mg PO DAILY Docusate [Colace] 100 mg PO DAILY #30 capsule traMADol HCl [Ultram] 50 mg PO Q6H PRN #28 tab PRN Reason: Pain HYDROcodone/APAP 7.5-325MG [[place] 7.5] 1 - 2 tab PO Q6HR PRN PRN Reason: Pain Discharge Medication List Ascorbic Acid [Vitamin C] 500 mg PO DAILY 08/06/17 [History] Multivitamins, Thera [Multivitamin (formulary)] 1 tab PO DAILY 08/06/17 [History ] Docusate [Colace] 100 mg PO DAILY #30 capsule 02/10/18 [Rx] traMADol HCl [Ultram] 50 mg PO Q6H PRN #28 tab 02/10/18 [Rx] HYDROcodone/APAP 7.5-325MG [[place] 7.5] 1 - 2 tab PO Q6HR PRN 04/03/18 [History] Aspirin [Adult Low Dose Aspirin EC] 81 mg PO BID #30 tablet. 04/04/18 [Rx] Follow up Appointment(s)/Referral(s): Renan Gan PAC [PHYSICIAN ACUTE CARE CLINICAL NURSE SPECIALIST] - 2 Weeks Activity/Diet/Wound Care/Special Instructions: Orthopedic discharge instructions: 1. Pain medication/anti-inflammatory medication as needed 2. Aspirin 81 mg twice a day for DVT prophylaxis 3. Okay to remove bandage in 6 days 4. Ice and elevate often 5. Toe-touch weightbearing, utilize crutches/walker 6. Follow-up [facility] in 2 weeks Discharge Disposition: HOME WITH HOME HEALTH SERVICES
== END 2018-04-04 12:20 | disposition home health service (06) | DRG 516 ==
LOC: OR 15:29 → 4SSUR 20:11
PROVIDERS: ADMIT Orthopaedic Surgery; ATTEND Orthopaedic Surgery
PROC: 0QSF04Z Reposition Left Patella with Internal Fixation Device, Open Approach (ICD-10-PCS; principal; 2018-04-03 10:50)
DX: S82.002A Unspecified fracture of left patella, initial encounter for closed fracture (principal); M97.12XA Periprosthetic fracture around internal prosthetic left knee joint, initial encounter; W01.0XXA Fall on same level from slipping, tripping and stumbling without subsequent striking against object, initial encounter; Z96.652 Presence of left artificial knee joint
CPT/HCPCS: 85025

== ENCOUNTER → 2020-02-10 | Outpatient (CLI) | payer BC, OTHER ==
[2020-02-10 14:39] LABS: Basophils # (A) 0.1 k/uL (0-0.2); Basophils % (A) 1 %; Eosinophils # (A) 0.3 k/uL (0-0.7); Eosinophils % (A) 4 %; HCT 45.1 % (39.0-53.0); HGB 15.2 gm/dL (13.0-17.5); Lymphocytes # (A) 2.5 k/uL (1.0-4.8); Lymphocytes % (A) 29 %; MCH 30.9 pg (25.0-35.0); MCHC 33.8 g/dL (31.0-37.0); MCV 91.3 fL (80.0-100.0); Mean Platelet Volume 7.1; Monocytes # (A) 0.4 k/uL (0-1.0); Monocytes % (A) 5 %; Neutrophils # (A) 5.1 k/uL (1.3-7.7); Neutrophils % (A) 59 %; Platelet Count 229 k/uL (150-450); RBC 4.94 m/uL (4.30-5.90); RDW 12.5 % (11.5-15.5); WBC 8.5 k/uL (3.8-10.6)
[2020-02-10 14:46] LABS: Potassium 4.3 mmol/L (3.5-5.1)
== END | disposition home or self-care (01) ==
LOC: LABPAT 13:16
PROVIDERS: ATTEND Orthopaedic Surgery
DX: Z01.818 Encounter for other preprocedural examination (principal); T84.89XD Other specified complication of internal orthopedic prosthetic devices, implants and grafts, subsequent encounter
CPT/HCPCS: 36415; 80051; 85025; 93005

== ENCOUNTER 2020-02-25 13:14 | Day surgery (SDC) | payer BC, OTHER ==
[2020-02-22 10:21] VITALS: BMI 34.2
--- NOTE | 2020-02-24 16:43 | HP ---
HISTORY AND PHYSICAL DATE OF SURGERY: 02/25/2020 Chris Christine is a 54-year-old gentleman seen with irritating internal internal fixation of the left knee. We discussed options for treatment. He elected to proceed with removal of his irritating hardware. Consent was obtained. PAST MEDICAL HISTORY: Noncontributory. PAST SURGICAL HISTORY: Left total knee arthroplasty, open reduction and internal fixation, left patella. DAILY MEDICATIONS: None. ALLERGIES: NONE. SOCIAL HISTORY: He denies current tobacco use. PHYSICAL EVALUATION OF THE LEFT KNEE: There is a well-healed anterior incision. Tenderness over the hardware in the peripatellar area. Range of motion zero to 130. Ligaments stable. Hip rotation without pain. Distal neurovascular exam intact. IMAGING: Left knee radiographs revealed a stable-appearing total knee arthroplasty and stable and well-healed ORIF patella. IMPRESSION: 1. Irritating internal fixation, left knee. 2. History of open reduction internal fixation, left patella. 3. Left total knee arthroplasty. PLAN: Removal irritating hardware, left knee. MMODL / IJN: [id number] /
[~2020-02-25 13:14] MED LIST changes: +DEXAMETHASONE SOD PHOSPHATE 4 MG/ML 1 ML VIAL IV ONE; +HYDROmorphone 0.5 MG/0.5 ML SYRINGE IVP PRN; +LACTATED RINGERS 1,000 ML IV SCH; +LIDOCAINE 1% (10MG/ML) FOR IV START INTRADERMA PRN; +MIDAZOLAM 2 MG/2 ML VIAL IV PRN; +ONDANSETRON 4 MG/2 ML VIAL IVP ONE; -ceFAZolin IN SWFI 2 GM/20 ML SYRINGE IVP ONE
[2020-02-25 13:37] VITALS: RESP 16
[2020-02-25] MEDS ORDERED: PROPOFOL 10 MG/ML 20 ML VIAL IV ONE (14:53)
[2020-02-25] MEDS ORDERED: HYDROmorphone (PF) 1 MG/ML ONE (14:53)
[2020-02-25] MEDS ORDERED: MIDAZOLAM 2 MG/2 ML VIAL ONE (14:53)
[2020-02-25] MEDS ORDERED: LIDOCAINE 1% INJ 10MG/ML (20 ML MDV) ONE (14:53)
[2020-02-25] MEDS ORDERED: fentaNYL (PF) 50 MCG/ML 2 ML AMP ONE (14:53)
[2020-02-25] MEDS ORDERED: SUCCINYLCHOLINE CHLORIDE 100 MG/5 ML SYR IV ONE (14:53)
[2020-02-25] MEDS ORDERED: BUPIVACAINE (PF) 0.25% 30 ML VIAL SQ ONE ×2 (15:16→15:41)
[2020-02-25] MEDS ORDERED: LACTATED RINGERS 1,000 ML IV ONE (15:39)
--- NOTE | 2020-02-25 15:42 | P.OP ---
Date of Procedure: 02/25/20 Preoperative Diagnosis: Irritating hardware left knee Postoperative Diagnosis: Irritating hardware left knee Procedure(s) Performed: Removal irritating hardware left knee Anesthesia: LEOBARDO local Surgeon: Justus Boykin Director Of Contracts #1: Renan Gan Estimated Blood Loss (ml): 4 Pathology: none sent Condition: stable Disposition: PACU Indications for Procedure: 54-year-old patient who was seen with irritating hardware left knee. We discussed removal. He was agreeable. Consent was obtained. Operative Findings: See description of procedure Description of Procedure: The patient was taken to the operative suite. The patient received preoperative IV antibiotics. The patient underwent a general anesthetic by the department of anesthesia. A well-padded tourniquet placed proximal left lower extremity. Left lower extremity was prepped and draped in the normal sterile orthopedic fashion. The extremity was elevated and tourniquet insufflated to 300. An incision was made over the previous cicatrix anteriorly. We dissected down to the patella. We identified the wires which did appear to be causing significant irritation. The wires were clipped and removed. The cerclage wire was fabiana ntified. That was clipped and removed. This was all done with assistance Johnnie RICO. Was irrigated. The subcu soft tissues were repaired with 2-0 Vicryl. The skin was prepped a running subcutaneous suture followed by skin glue. The subcutaneous tissues were infiltrated a percent plain Marcaine. Sterile dressings were applied. Tourniquet released made and immediate cap refill noted of the entire extremity. The patient was awakened and transferred to a bed and recovery stable condition. Johnnie RICO assisted with the procedure.
[2020-02-25 16:09] VITALS: TEMP 97
[2020-02-25 17:15] VITALS: BP 100/65; PULSE 74
== END 2020-02-25 17:35 | disposition home or self-care (01) ==
LOC: OR 13:14
PROVIDERS: ATTEND Orthopaedic Surgery
DX: T84.89XA Other specified complication of internal orthopedic prosthetic devices, implants and grafts, initial encounter (principal); Z96.652 Presence of left artificial knee joint; Z87.81 Personal history of (healed) traumatic fracture; Z87.19 Personal history of other diseases of the digestive system; Z98.890 Other specified postprocedural states
CPT/HCPCS: 20680; J2250; J1100; J0690; J2405; J2001; J3010; J1170; J0330; J2704

== ENCOUNTER 2023-04-23 11:24 | Day surgery (SDC) | payer BC, OTHER ==
[~2023-04-23 11:24] MED LIST changes: -DEXAMETHASONE SOD PHOSPHATE 4 MG/ML 1 ML VIAL IV ONE; -HYDROmorphone 0.5 MG/0.5 ML SYRINGE IVP PRN; -LACTATED RINGERS 1,000 ML IV SCH; -MIDAZOLAM 2 MG/2 ML VIAL IV PRN; -ONDANSETRON 4 MG/2 ML VIAL IVP ONE; +ONDANSETRON 4 MG/2 ML VIAL IVP PRN
[2023-04-23] MEDS: LACTATED RINGERS 1,000 ML IV SCH (12:03)
[2023-04-23 12:06] VITALS: TEMP 97.5
[2023-04-23] MEDS ORDERED: PROPOFOL 10 MG/ML 20 ML VIAL IV ONE (12:24)
[2023-04-23] MEDS ORDERED: LIDOCAINE 1% INJ 10MG/ML (20 ML MDV) ONE (12:24)
--- NOTE | 2023-04-23 12:42 | P.PCN ---
Date of Procedure: 04/23/23 Procedure(s) Performed: BRIEF HISTORY: Patient is a 57-year-old pleasant white male scheduled for an elective colonoscopy as a part of evaluation of prior history of colon polyps. Last colonoscopy was 6 years ago. PROCEDURE PERFORMED: Colonoscopy with biopsy. PREOPERATIVE DIAGNOSIS: History of colon polyps. IV sedation per Anesthesia. PROCEDURE: After informed consent was obtained, the patient, was brought into the endoscopy unit. IV sedation was administered by Anesthesia under continuous monitoring. Digital rectal examination was normal. Initially the Olympus CF-160 flexible video colonoscope was then inserted in the rectum, gradually advanced into the cecum without any difficulty. Careful examination was performed as the scope was gradually being withdrawn. Ileocecal valve and the appendiceal orifice were visualized and appeared normal. Prep was excellent. Mucosa of the cecum, ascending colon appeared normal. In the hepatic flexure there was a 4 mm polyp that was removed by cold biopsy. In the transverse colon there was a 5 limited polyp that was removed by cold biopsy. Rest of the, transverse colon, descending colon, sigmoid colon, and rectum appeared normal. In the sigmoid: There was a 5 mm polyp removed by cold biopsy. Retroflexion was performed in the rectum and no lesions were seen. The patient tolerated the procedure well. IMPRESSION: 4 mm hepatic flexure polyp status post cold biopsy. 5 mm transverse colon polyp status post cold biopsy. 5 mm sigmoid polyp status post cold biopsy RECOMMENDATIONS: Findings of this examination were discussed with the patient as well as his family. He was advised to follow with the biopsy results. If the biopsy reveals adenoma he can have a repeat colonoscopy in 3 years..
[2023-04-23 13:34] VITALS: BP 118/67; PULSE 87; RESP 15
== END 2023-04-23 13:29 | disposition home or self-care (01) ==
LOC: ORWHC2ENDO 11:24
PROVIDERS: ATTEND Internal Medicine Gastroenterology
DX: Z12.11 Encounter for screening for malignant neoplasm of colon (principal); D12.3 Benign neoplasm of transverse colon; D12.5 Benign neoplasm of sigmoid colon; Z86.010 Personal history of colon polyps; Z79.899 Other long term (current) drug therapy; Z96.659 Presence of unspecified artificial knee joint; Z98.890 Other specified postprocedural states
CPT/HCPCS: 45380; J2001; J2704; 88305